=== PATIENT | male | born 1970 | race Caucasian/White ===

== ENCOUNTER 2018-05-13 19:55 | Inpatient (IN) ==
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
[2018-05-13] MEDS ORDERED: Diphtheria/Tetanus/Pertussis Vaccine Inj 0.5 ML Syringe IM ONE (20:20)
[2018-05-13] MEDS ORDERED: ceFAZolin 2 GM Premix Inj 2 GM/50 ML PIGGYBACK IV.SIG ONE (20:20)
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
[2018-05-13 20:21] LABS: Baso # (Auto) 0.1 th/mm3 (0.0-0.2); Baso % (Auto) 1.1 % (0.0-2.0); Eos # (Auto) 0.1 th/mm3 (0.0-0.4); Eos % (Auto) 1.2 % (0.0-4.0); Hematocrit 44.7 % (39.0-51.0); Hemoglobin 15.2 gm/dL (13.0-17.0); Lymph # (Auto) 2.3 th/mm3 (1.0-4.8); Lymph % (Auto) 28.6 % (9.0-44.0); Mean Corpuscular HGB Conc 33.9 % (32.0-36.0); Mean Corpuscular Hemoglobin 32.6 pg (27.0-34.0); Mean Corpuscular Volume 96.1 fL (80.0-100.0); Mean Platelet Volume 8.3 fL (7.0-11.0); Mono # (Auto) 0.6 th/mm3 (0.0-0.9); Neut # (Auto) 4.8 th/mm3 (1.8-7.7); Neut % (Auto) 61.1 % (16.0-70.0); Platelet Count 179 th/mm3 (150-450); Red Blood Count 4.65 mil/mm3 (4.50-5.90); Red Cell Distribution Width 13.3 % (11.6-17.2); White Blood Count 7.9 th/mm3 (4.0-11.0)
[2018-05-13 20:30] LABS: Activated Partial Thrombo Time 22.9 sec (24.3-30.1); Prothrombin Time 10.5 sec (9.8-11.6)
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
[2018-05-13] MEDS ORDERED: Lidocaine 1%/Epinephrine 1:100,000 Inj 20 ML Vial ONE (20:43)
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
[2018-05-13] MEDS ORDERED: fentaNYL Citrate Inj 100 MCG/2 ML Ampul ONE (21:00)
--- NOTE | 2018-05-13 21:11 | XR ---
EXAM DATE: 05/13/2018 8:58 PM EDT AGE/SEX: 89 years / Male INDICATIONS: Evaluate for pneumothorax post chest tube placement. CLINICAL DATA: This is the patient's initial encounter. Patient reports that signs and symptoms have been present for 1 day and indicates a pain score of 0/10. MEDICAL/SURGICAL HISTORY: Non-responsive. Non-responsive. COMPARISON: [facility] – [place], CHEST 1V SINGLE AP, 05/13/2018. . FINDINGS: Right chest tube is in place. No definite pneumothorax is seen for technique. Right clavicular and rib fractures are again seen. Pa renchymal contusion is seen right upper lobe worse since the prior exam. There are no other changes. CONCLUSION: 1. No definite pneumothorax is seen for technique. 2. Worsening parenchymal contusion right upper lobe. Electronically signed by: Donte Parada MD 05/13/2018 9:10 PM EDT
[2018-05-13] MEDS ORDERED: Naloxone Inj 0.4 MG/ML Vial IV.PUSH PRN (21:19)
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
--- NOTE | 2018-05-13 22:21 | XR ---
EXAM DATE: 05/13/2018 12:00 AM EDT AGE/SEX: 89 years / Male INDICATIONS: Pain status post DETENTION. CLINICAL DATA: This is the patient's initial encounter. Patient reports that signs and symptoms have been present for 1 day and indicates a pain score of 8/10. MEDICAL/SURGICAL HISTORY: None. None. COMPARISON: C, SHOULDER LIMITED RIGHT 2V, 05/13/2018. . FINDINGS: There is a mid right clavicle fracture. The distal lateral fragment is inferiorly positioned in relat ionship to the proximal medial fragment. There is a right chest tube present. CONCLUSION: Mid right clavicle fracture. Electronically signed by: Patric Orellana MD 05/13/2018 10:20 PM EDT
[2018-05-13] MEDS: HYDROmorphone PCA Inj 6 MG/30 ML PCA.VIAL PCA PRN (23:21)
--- NOTE | 2018-05-14 01:31 | XR ---
EXAM DATE: 05/14/2018 8:58 PM EDT AGE/SEX: 47 years / Male INDICATIONS: Right side chest tube placement, atelectasis. CLINICAL DATA: This is the patient's subsequent encounter. Patient reports that signs and symptoms h ave been present for 2 days and indicates a pain score of 7/10. MEDICAL/SURGICAL HISTORY: . Smoker. Chest tube, right. COMPARISON: [facility] [place], CHEST EXPIRATION ONLY, 05/13/2018. . FINDINGS: Right chest tube present without pneumothorax. Slight increase in right sided airspace disease since May 13. Small right pleural effusion. Stable left basilar opacity. Right clavicle and right rib f ractures. CONCLUSION: Right chest tube without pneumothorax. Slight increase in right-sided airspace disease since May 13. Electronically signed by: Win Naik MD 05/14/2018 1:30 AM EDT
[2018-05-14] MEDS ORDERED: Chlorhexidine Gluconate 2% 1 Pack (2 Cloths) TOPICAL PRN (04:00)
[2018-05-14] MEDS: Chlorhexidine Gluconate 2% 1 Pack (2 Cloths) TOPICAL SCH (04:04)
[2018-05-14 04:05] LABS: Baso # (Auto) 0.1 th/mm3 (0.0-0.2); Baso % (Auto) 0.8 % (0.0-2.0); Eos % (Auto) 0.1 % (0.0-4.0); Hematocrit 43.3 % (39.0-51.0); Hemoglobin 15.1 gm/dL (13.0-17.0); Lymph # (Auto) 0.8 th/mm3 (1.0-4.8); Lymph % (Auto) 7.2 % (9.0-44.0); Mean Corpuscular HGB Conc 34.8 % (32.0-36.0); Mean Corpuscular Hemoglobin 33.5 pg (27.0-34.0); Mean Corpuscular Volume 96.2 fL (80.0-100.0); Mean Platelet Volume 8.4 fL (7.0-11.0); Mono # (Auto) 0.8 th/mm3 (0.0-0.9); Mono % (Auto) 6.8 % (0.0-8.0); Neut # (Auto) 9.8 th/mm3 (1.8-7.7); Neut % (Auto) 85.1 % (16.0-70.0); Platelet Count 172 th/mm3 (150-450); Red Cell Distribution Width 13.5 % (11.6-17.2); White Blood Count 11.5 th/mm3 (4.0-11.0)
[2018-05-14 04:33] LABS: Calcium 8.1 mg/dL (8.5-10.1); Carbon Dioxide 26.3 meq/L (21.0-32.0); Magnesium 1.9 mg/dL (1.5-2.5); Phosphorus 4.3 mg/dL (2.5-4.9); Potassium 4.5 meq/L (3.5-5.1)
[2018-05-14 04:35] LABS: Lymphocytes 6 % (9-44); Monocytes 5 % (0-8); Ovalocytes 1+; Platelet Estimate Normal (Normal); Platelet Morphology Normal (Normal)
[2018-05-14 04:37] LABS: Troponin I 0.02 ng/mL (0.02-0.05)
[2018-05-14] MEDS ORDERED: Potassium Chlor 20 mEq Premix 20 MEQ/100 ML PIGGYBACK IV.SIG PRN ×2 (04:43)
[2018-05-14] MEDS ORDERED: Magnesium Oxide 400 MG Tablet PO PRN (04:43)
[2018-05-14] MEDS ORDERED: Potassium Phosphate 500 MG Soluble Tablet PO PRN ×2 (04:43)
[2018-05-14] MEDS ORDERED: Potassium Chloride 25 MEQ Effervescent Tablet PO PRN (04:43)
[2018-05-14] MEDS ORDERED: Potassium Phosphate Inj 30 MMOL in Sodium Chlor 0.9% Inj 250 ML IV.SIG PRN (04:43)
[2018-05-14] MEDS ORDERED: Sodium Phosphate Inj 30 MMOL in Sodium Chlor 0.9% Inj 250 ML IV.SIG PRN (04:43)
[2018-05-14] MEDS ORDERED: Potassium Chlor 40 mEq Premix 40 MEQ/100 ML PIGGYBACK IV.SIG PRN ×2 (04:43)
[2018-05-14] MEDS ORDERED: Magnesium Sulfate Inj 4 GM in Sodium Chlor 0.9% Inj 92 ML IV.SIG PRN (04:43)
[2018-05-14] MEDS ORDERED: Magnesium Sulfate Inj 2 GM in Sodium Chlor 0.9% Inj 96 ML IV.SIG PRN (04:43)
--- NOTE | 2018-05-14 07:55 | XR ---
EXAM DATE: 05/14/2018 7:17 AM EDT AGE/SEX: 47 years / Male INDICATIONS: Evaluate right pneumothorax. CLINICAL DATA: This is the patient's subsequent encounter. Patient reports that signs and symptoms h ave been present for 2 days and indicates a pain score of 7/10. MEDICAL/SURGICAL HISTORY: . Smoker. . Chest tube, right. COMPARISON: . FINDINGS: AP upright portable view of the chest demonstrates stable positioning of a right-sided basilar chest tube. Hazy opacity overlying the right hemithorax, stable from prior exam. Improved aeration of the l eft hemithorax with no visible airspace consolidation or pleural fluid. Heart size appears normal. Pu lmonary vasculature demonstrates cephalization which may be secondary to supine technique. Osseous st ructures are significant for a comminuted minimally displaced right clavicular fracture. Right-sided rib fractures are not well visualized on this exam. CONCLUSION: Layering right-sided pleural effusion. Right-sided chest tube is stable. No visible pneumothorax. Electronically signed by: Mili Reynolds MD 05/14/2018 7:54 AM EDT
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
[2018-05-14] MEDS: Lidocaine 5% Patch T-DERMAL SCH (08:45)
[2018-05-14] MEDS: Famotidine 20 MG Tablet PO SCH ×2 (08:45→20:44)
[2018-05-14] MEDS: Docusate Sodium 100 MG Capsule PO SCH ×2 (08:45→20:44)
[2018-05-14] MEDS: Enoxaparin Inj 30 MG/0.3 ML Syringe SQ SCH ×2 (10:16→22:08)
[2018-05-14] MEDS: Ketorolac Inj 30 MG/ML (IVP) Vial IV.PUSH SCH ×3 (10:35→21:15)
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
--- NOTE | 2018-05-14 12:57 | ECG ---
Date Performed: 05/14/2018 Time Performed: 01:47:12 PTAGE: 47 years EKG: Sinus rhythm with frequent PVCs. Inferior T wave changes are nonspecific Abnormal ECG NO PREVIOUS TRACING DOCTOR: Luciano Donohue Interpretating Date/Time 05/14/2018 12:55:29
--- NOTE | 2018-05-14 13:07 | ECHRPT ---
Indication: CARDIAC CONTUSION CONCLUSIONS The left ventricular systolic function is normal with an estimated ejection fraction in the range of 60-65%. Trace mitral valve regurgitation. Trivial pulmonary valve regurgitation. No pericardial effusion. BP: / HR: Rhythm: Sinus MEASUREMENTS (Male / Female) Normal Values Technical Quality:Poor 2D ECHO LV Diastolic Diameter PLAX 5.0 cm 4.2 - 5.9 / 3.9 - 5.3 cm LV Systolic Diameter PLAX 3.5 cm IVS Diastolic Thickness 1.0 cm 0.6 - 1.0 / 0.6 - 0.9 cm LVPW Diastolic Thickness 1.0 cm 0.6 - 1.0 / 0.6 - 0.9 cm LV Relative Wall Thickness 0.4 RV Internal Dim ED PLAX 2.4 cm LVOT Diameter 2.4 cm LA Systolic Diameter LX 2.8 cm 3.0 - 4.0 / 2.7 - 3.8 cm LV Ejection Fraction MOD 4C 64.0 % LV Ejection Fraction 4C AL 64.5 % M-MODE Aortic Root Diameter MM 2.3 cm LA Systolic Diameter MM 3.3 cm LA Ao Ratio MM 1.4 AV Cusp Separation MM 2.1 cm DOPPLER AV Peak Velocity 130.0 cm/s AV Peak Gradient 6.8 mmHg LVOT Peak Velocity 87.4 cm/s LVOT Peak Gradient 3.1 mmHg AV Area Cont Eq pk 3.0 cm MV Area PHT 4.2 cm Mitral E Point Velocity 71.6 cm/s Mitral A Point Velocity 43.4 cm/s Mitral E to A Ratio 1.6 PV Peak Velocity 126.0 cm/s PV Peak Gradient 6.4 mmHg FINDINGS LEFT VENTRICLE The left ventricular systolic function is normal with an estimated ejection fraction in the range of 60-65%. Normal left ventricular size. Wall thickness is normal. RIGHT VENTRICLE The right ventricle was not well visualized. LEFT ATRIUM The left atrial size is normal. RIGHT ATRIUM The right atrial size is normal. ATRIAL SEPTUM Normal atrial septal thickness without atrial level shunting by limited color doppler interrogation. AORTA The aortic root and proximal ascending aorta are normal in size on limited imaging. MITRAL VALVE Structurally normal mitral valve. Trace mitral valve regurgitation. No mitral valve stenosis. AORTIC VALVE Trileaflet aortic valve. No aortic valve stenosis or regurgitation. TRICUSPID VALVE Grossly normal tricuspid valve. No tricuspid valve stenosis or regurgitation. PULMONARY VALVE Trivial pulmonary valve regurgitation. VESSELS The inferior vena cava was not well visualized. PERICARDIUM No pericardial effusion. Vincent G. Bang DO (Electronically Signed) Final Date:14 May 2018 13:07
[2018-05-14] MEDS: HYDROmorphone PCA Inj 6 MG/30 ML PCA.VIAL PCA PRN (15:02)
[2018-05-15 04:21] LABS: Baso % (Auto) 0.7 % (0.0-2.0); Eos # (Auto) 0.1 th/mm3 (0.0-0.4); Eos % (Auto) 1.1 % (0.0-4.0); Hematocrit 39.6 % (39.0-51.0); Hemoglobin 13.6 gm/dL (13.0-17.0); Lymph # (Auto) 1.4 th/mm3 (1.0-4.8); Lymph % (Auto) 22.5 % (9.0-44.0); Mean Corpuscular HGB Conc 34.4 % (32.0-36.0); Mean Corpuscular Hemoglobin 33.5 pg (27.0-34.0); Mean Corpuscular Volume 97.5 fL (80.0-100.0); Mean Platelet Volume 8.6 fL (7.0-11.0); Mono # (Auto) 0.6 th/mm3 (0.0-0.9); Mono % (Auto) 9.4 % (0.0-8.0); Neut # (Auto) 4.2 th/mm3 (1.8-7.7); Neut % (Auto) 66.3 % (16.0-70.0); Platelet Count 126 th/mm3 (150-450); Red Blood Count 4.07 mil/mm3 (4.50-5.90); Red Cell Distribution Width 13.5 % (11.6-17.2); White Blood Count 6.4 th/mm3 (4.0-11.0)
[2018-05-15] MEDS: Ketorolac Inj 30 MG/ML (IVP) Vial IV.PUSH SCH ×4 (04:45→21:10)
[2018-05-15] MEDS: Chlorhexidine Gluconate 2% 1 Pack (2 Cloths) TOPICAL SCH (04:46)
[2018-05-15] MEDS: HYDROmorphone PCA Inj 6 MG/30 ML PCA.VIAL PCA PRN ×2 (04:46→18:12)
[2018-05-15 04:47] LABS: Alanine Aminotransferase 53 U/L (12-78); Albumin 2.8 g/dL (3.4-5.0); Anion Gap 4 meq/L (5-15); Aspartate Aminotransferase 55 U/L (15-37); Blood Urea Nitrogen 22 mg/dL (7-18); Calcium 7.8 mg/dL (8.5-10.1); Carbon Dioxide 28.8 meq/L (21.0-32.0); Chloride 105 meq/L (98-107); Glomerular Filtration Rate 85 mL/min (>89); Glucose,Random 102 mg/dL (74-106); Potassium 4.2 meq/L (3.5-5.1); Sodium 138 meq/L (136-145)
[2018-05-15 04:49] LABS: Alkaline Phosphatase 61 U/L (45-117)
--- NOTE | 2018-05-15 05:40 | XR ---
EXAM DATE: 05/15/2018 6:00 AM EDT AGE/SEX: 47 years / Male INDICATIONS: Shortness of breath. CLINICAL DATA: This is the patient's subsequent encounter. Patient reports that signs and symptoms h ave been present for 2 days and indicates a pain score of 0/10. MEDICAL/SURGICAL HISTORY: . Smoker. Chest tube, right. [place] [facility] [place]. . FINDINGS: Right chest tube remains without pneumothorax. Right effusion appears stable. Multiple right rib frac tures noted and right clavicle fracture. Basilar and dependent airspace disease remains in the lungs, slightly improved from May 14. CONCLUSION: Slight improvement in bilateral airspace disease. Right chest tube without pneumothorax. Electronically signed by: Win Naik MD 05/15/2018 5:39 AM EDT
[2018-05-15] MEDS ORDERED: Sodium Chloride 0.9% 2 ML Flush PRN IV.FLUSH (09:29)
[2018-05-15] MEDS ORDERED: Sod Chloride 0.9% Inj 1,000 ML IV.SIG SCH (09:30)
[2018-05-15] MEDS: Docusate Sodium 100 MG Capsule PO SCH ×2 (11:03→21:11)
[2018-05-15] MEDS: Lidocaine 5% Patch T-DERMAL SCH (11:04)
[2018-05-15] MEDS: Famotidine 20 MG Tablet PO SCH ×2 (11:04→21:10)
[2018-05-15] MEDS: Enoxaparin Inj 30 MG/0.3 ML Syringe SQ SCH ×2 (11:12→22:17)
[2018-05-15] MEDS: Gabapentin 300 MG Capsule PO SCH ×2 (12:30→17:11)
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
[2018-05-15] MEDS: Sodium Chloride 0.9% 2 ML Flush BID IV.FLUSH SCH (21:11)
[2018-05-16] MEDS: Chlorhexidine Gluconate 2% 1 Pack (2 Cloths) TOPICAL SCH (03:18)
[2018-05-16 04:04] LABS: Baso % (Auto) 0.4 % (0.0-2.0); Eos % (Auto) 0.8 % (0.0-4.0); Hematocrit 38.8 % (39.0-51.0); Hemoglobin 13.1 gm/dL (13.0-17.0); Lymph # (Auto) 0.7 th/mm3 (1.0-4.8); Lymph % (Auto) 11.3 % (9.0-44.0); Mean Corpuscular HGB Conc 33.8 % (32.0-36.0); Mean Corpuscular Volume 97.9 fL (80.0-100.0); Mean Platelet Volume 8.9 fL (7.0-11.0); Mono # (Auto) 0.5 th/mm3 (0.0-0.9); Mono % (Auto) 7.9 % (0.0-8.0); Neut # (Auto) 5.1 th/mm3 (1.8-7.7); Neut % (Auto) 79.6 % (16.0-70.0); Platelet Count 128 th/mm3 (150-450); Red Blood Count 3.97 mil/mm3 (4.50-5.90); Red Cell Distribution Width 13.4 % (11.6-17.2); White Blood Count 6.5 th/mm3 (4.0-11.0)
[2018-05-16 04:26] LABS: Anion Gap 5 meq/L (5-15); Aspartate Aminotransferase 57 U/L (15-37); Blood Urea Nitrogen 22 mg/dL (7-18); Calcium 8.5 mg/dL (8.5-10.1); Carbon Dioxide 30.3 meq/L (21.0-32.0); Chloride 103 meq/L (98-107); Glomerular Filtration Rate 87 mL/min (>89); Glucose,Random 95 mg/dL (74-106); Potassium 4.2 meq/L (3.5-5.1); Sodium 138 meq/L (136-145)
[2018-05-16 04:27] LABS: Alanine Aminotransferase 48 U/L (12-78)
[2018-05-16 04:29] LABS: Alkaline Phosphatase 62 U/L (45-117); Total Protein 6.7 g/dL (6.4-8.2)
--- NOTE | 2018-05-16 04:31 | XR ---
EXAM DATE: 05/16/2018 6:00 AM EDT AGE/SEX: 47 years / Male INDICATIONS: Shortness of breath, cough, congestion. CLINICAL DATA: This is the patient's subsequent encounter. Patient reports that signs and symptoms h ave been present for 3 days and indicates a pain score of 0/10. MEDICAL/SURGICAL HISTORY: . Smoker. Chest tube, right. COMPARISON: [facility] [place], CHEST 1V SINGLE AP, 05/15/2018. . FINDINGS: The cardiac silhouette is enlarged in transverse diameter. A right chest tube is in place. There is n o evidence of pneumothorax. There is patchy alveolar disease bilaterally characteristic of edema or p neumonia right greater than left. CONCLUSION: Diffuse edema versus pneumonia. The findings have worsened when compared with the prior examination. Electronically signed by: King Brown MD 05/16/2018 4:29 AM EDT
[2018-05-16] MEDS: Ketorolac Inj 30 MG/ML (IVP) Vial IV.PUSH SCH ×4 (05:07→22:11)
[2018-05-16] MEDS: Famotidine 20 MG Tablet PO SCH ×2 (09:02→20:52)
[2018-05-16] MEDS: Gabapentin 300 MG Capsule PO SCH ×3 (09:02→17:37)
[2018-05-16] MEDS: Senna/Docusate Sodium 8.6/50 MG Tablet PO SCH ×2 (09:02→20:52)
[2018-05-16] MEDS: Lidocaine 5% Patch T-DERMAL SCH (09:02)
[2018-05-16] MEDS: Sodium Chloride 0.9% 2 ML Flush BID IV.FLUSH SCH ×2 (09:03→20:52)
[2018-05-16] MEDS: HYDROmorphone PCA Inj 6 MG/30 ML PCA.VIAL PCA PRN (10:28)
[2018-05-16] MEDS: Enoxaparin Inj 30 MG/0.3 ML Syringe SQ SCH ×2 (11:00→22:11)
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
[2018-05-17] MEDS: HYDROmorphone PCA Inj 6 MG/30 ML PCA.VIAL PCA PRN (03:11)
[2018-05-17] MEDS: Ketorolac Inj 30 MG/ML (IVP) Vial IV.PUSH SCH ×4 (04:34→21:30)
[2018-05-17] MEDS: Chlorhexidine Gluconate 2% 1 Pack (2 Cloths) TOPICAL SCH (04:35)
--- NOTE | 2018-05-17 06:04 | XR ---
EXAM DATE: 05/17/2018 12:00 AM EDT AGE/SEX: 47 years / Male INDICATIONS: Shortness of breath. Cough, congestion, chest pain. CLINICAL DATA: This is the patient's subsequent encounter. Patient reports that signs and symptoms h ave been present for 4 - 6 days and indicates a pain score of 8/10. MEDICAL/SURGICAL HISTORY: . Smoker. Chest tube, right. COMPARISON: [facility] – [place], CHEST 1V SINGLE AP, 05/16/2018. . FINDINGS: The cardiac silhouette is normal in transverse diameter. A right chest tube is in place. There is no evidence of pneumothorax. There is patchy alveolar disease bilaterally compatible with edema or pneum onia. No pleural effusions are identified. CONCLUSION: Diffuse edema versus pneumonia. There has been no significant change when compared to the prior exam. Electronically signed by: King Brown MD 05/17/2018 6:03 AM EDT
[2018-05-17] MEDS: Senna/Docusate Sodium 8.6/50 MG Tablet PO SCH ×2 (09:31→21:30)
[2018-05-17] MEDS: Gabapentin 300 MG Capsule PO SCH ×3 (09:32→17:25)
[2018-05-17] MEDS: Sodium Chloride 0.9% 2 ML Flush BID IV.FLUSH SCH ×2 (09:33→21:33)
[2018-05-17] MEDS: Lidocaine 5% Patch T-DERMAL SCH (09:33)
[2018-05-17] MEDS: Famotidine 20 MG Tablet PO SCH ×2 (09:34→21:30)
[2018-05-17] MEDS: Enoxaparin Inj 30 MG/0.3 ML Syringe SQ SCH ×2 (11:09→22:30)
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
[2018-05-17] MEDS: Morphine Inj 4 MG/ML Vial IV.PUSH PRN ×2 (15:43→22:51)
[2018-05-18] MEDS: Morphine Inj 4 MG/ML Vial IV.PUSH PRN (01:59)
[2018-05-18] MEDS: Ketorolac Inj 30 MG/ML (IVP) Vial IV.PUSH SCH ×4 (04:18→22:13)
[2018-05-18] MEDS: Chlorhexidine Gluconate 2% 1 Pack (2 Cloths) TOPICAL SCH (04:20)
[2018-05-18 05:46] LABS: Baso % (Auto) 0.8 % (0.0-2.0); Eos # (Auto) 0.1 th/mm3 (0.0-0.4); Eos % (Auto) 2.1 % (0.0-4.0); Hematocrit 38.6 % (39.0-51.0); Hemoglobin 13.4 gm/dL (13.0-17.0); Lymph # (Auto) 0.9 th/mm3 (1.0-4.8); Lymph % (Auto) 19.1 % (9.0-44.0); Mean Corpuscular HGB Conc 34.8 % (32.0-36.0); Mean Corpuscular Hemoglobin 33.3 pg (27.0-34.0); Mean Corpuscular Volume 95.8 fL (80.0-100.0); Mean Platelet Volume 8.1 fL (7.0-11.0); Mono # (Auto) 0.5 th/mm3 (0.0-0.9); Neut # (Auto) 3.2 th/mm3 (1.8-7.7); Platelet Count 176 th/mm3 (150-450); Red Blood Count 4.03 mil/mm3 (4.50-5.90); Red Cell Distribution Width 13.7 % (11.6-17.2); White Blood Count 4.7 th/mm3 (4.0-11.0)
--- NOTE | 2018-05-18 06:05 | XR ---
EXAM DATE: 05/18/2018 12:00 AM EDT AGE/SEX: 47 years / Male INDICATIONS: Shortness of breath. CLINICAL DATA: This is the patient's subsequent encounter. Patient reports that signs and symptoms h ave been present for 4 - 6 days and indicates a pain score of Nonresponsive. MEDICAL/SURGICAL HISTORY: None. None. COMPARISON: [facility], CHEST 1V SINGLE AP, 05/17/2018. . FINDINGS: The cardiac silhouette is enlarged in transverse diameter. There is diffuse edema versus pneumonia ri ght greater than left. There is no evidence of pneumothorax. Chest tube has been removed CONCLUSION: Diffuse edema versus pneumonia. There has been no significant change when compared to the prior exam. Electronically signed by: King Brown MD 05/18/2018 6:04 AM EDT
[2018-05-18 06:15] LABS: Anion Gap 7 meq/L (5-15); Blood Urea Nitrogen 16 mg/dL (7-18); Calcium 8.3 mg/dL (8.5-10.1); Carbon Dioxide 29.9 meq/L (21.0-32.0); Chloride 101 meq/L (98-107); Glomerular Filtration Rate Greater Than 89 mL/min (>89); Glucose,Random 107 mg/dL (74-106); Potassium 3.6 meq/L (3.5-5.1); Sodium 138 meq/L (136-145)
[2018-05-18] MEDS: Famotidine 20 MG Tablet PO SCH ×2 (09:15→20:11)
[2018-05-18] MEDS: Lidocaine 5% Patch T-DERMAL SCH (09:15)
[2018-05-18] MEDS: Sodium Chloride 0.9% 2 ML Flush BID IV.FLUSH SCH ×2 (09:15→23:34)
[2018-05-18] MEDS: Senna/Docusate Sodium 8.6/50 MG Tablet PO SCH ×2 (09:15→20:11)
[2018-05-18] MEDS: Gabapentin 300 MG Capsule PO SCH ×3 (09:15→18:19)
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
[2018-05-18] MEDS: Enoxaparin Inj 30 MG/0.3 ML Syringe SQ SCH ×2 (12:25→22:14)
[2018-05-18] MEDS: Melatonin 5 MG Tablet PO PRN (20:11)
[2018-05-19] MEDS: Ketorolac Inj 30 MG/ML (IVP) Vial IV.PUSH SCH (03:49)
--- NOTE | 2018-05-19 05:33 | XR ---
EXAM DATE: 05/19/2018 6:00 AM EDT AGE/SEX: 47 years / Male INDICATIONS: Shortness of breath. CLINICAL DATA: This is the patient's subsequent encounter. Patient reports that signs and symptoms h ave been present for 1 week and indicates a pain score of Nonresponsive. MEDICAL/SURGICAL HISTORY: None. Non-responsive. COMPARISON: [facility] [place] SINGLE AP[place]18/2018. . FINDINGS: The cardiac silhouette is normal in transverse diameter. There is edema versus pneumonia bilaterally right greater than left. A moderate size right sided effusion is present. CONCLUSION: Diffuse edema versus pneumonia. There has been no significant change when compared to the prior exam. Electronically signed by: King Brown MD 05/19/2018 5:32 AM EDT
[2018-05-19 05:54] LABS: Baso % (Auto) 0.9 % (0.0-2.0); Eos # (Auto) 0.1 th/mm3 (0.0-0.4); Eos % (Auto) 2.7 % (0.0-4.0); Hematocrit 37.8 % (39.0-51.0); Lymph # (Auto) 0.8 th/mm3 (1.0-4.8); Lymph % (Auto) 14.5 % (9.0-44.0); Mean Corpuscular HGB Conc 34.4 % (32.0-36.0); Mean Corpuscular Hemoglobin 33.3 pg (27.0-34.0); Mean Corpuscular Volume 96.7 fL (80.0-100.0); Mean Platelet Volume 8.1 fL (7.0-11.0); Mono # (Auto) 0.4 th/mm3 (0.0-0.9); Mono % (Auto) 7.6 % (0.0-8.0); Neut # (Auto) 3.9 th/mm3 (1.8-7.7); Neut % (Auto) 74.3 % (16.0-70.0); Platelet Count 185 th/mm3 (150-450); Red Cell Distribution Width 13.4 % (11.6-17.2); White Blood Count 5.2 th/mm3 (4.0-11.0)
[2018-05-19 06:24] LABS: Alanine Aminotransferase 47 U/L (12-78); Albumin 2.6 g/dL (3.4-5.0); Anion Gap 5 meq/L (5-15); Aspartate Aminotransferase 57 U/L (15-37); Blood Urea Nitrogen 19 mg/dL (7-18); Calcium 8.4 mg/dL (8.5-10.1); Carbon Dioxide 32.5 meq/L (21.0-32.0); Chloride 102 meq/L (98-107); Glomerular Filtration Rate 88 mL/min (>89); Glucose,Random 125 mg/dL (74-106); Potassium 3.6 meq/L (3.5-5.1); Sodium 139 meq/L (136-145)
[2018-05-19 06:26] LABS: Alkaline Phosphatase 66 U/L (45-117); Total Protein 6.5 g/dL (6.4-8.2)
[2018-05-19] MEDS ORDERED: Bisacodyl 10 MG Supp RECTAL ONE (08:14)
[2018-05-19] MEDS: Famotidine 20 MG Tablet PO SCH ×2 (08:19→22:12)
[2018-05-19] MEDS: Lidocaine 5% Patch T-DERMAL SCH (08:19)
[2018-05-19] MEDS: Gabapentin 300 MG Capsule PO SCH ×3 (08:19→17:38)
[2018-05-19] MEDS: Senna/Docusate Sodium 8.6/50 MG Tablet PO SCH ×2 (08:19→22:13)
[2018-05-19] MEDS: Enoxaparin Inj 30 MG/0.3 ML Syringe SQ SCH ×2 (10:13→22:17)
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
[2018-05-19] MEDS: Morphine Inj 4 MG/ML Vial IV.PUSH PRN (11:34)
[2018-05-19] MEDS: Sodium Chloride 0.9% 2 ML Flush BID IV.FLUSH SCH ×2 (12:29→22:13)
--- NOTE | 2018-05-20 05:05 | XR ---
EXAM DATE: 05/20/2018 6:00 AM EDT AGE/SEX: 47 years / Male INDICATIONS: Respiratory disease. CLINICAL DATA: This is the patient's subsequent encounter. Patient reports that signs and symptoms h ave been present for 1 week and indicates a pain score of 9/10. MEDICAL/SURGICAL HISTORY: None. None. [place] [facility] [place]. . FINDINGS: The heart size is normal. There is increased density at the bases bilaterally being worse on the righ t. There is silhouetting the right hemidiaphragm. There is fracturing of the right mid clavicle. Ther e appears to be a mild right pleural effusion. Right-sided rib fractures are seen. CONCLUSION: Bibasilar areas of consolidation or atelectasis being much worse on the right. Mild right pleural effusion. Right clavicle and rib fractures. Electronically signed by: Patric Orellana MD 05/20/2018 5:04 AM EDT
[2018-05-20] MEDS ORDERED: Magnesium Citrate Liq 300 ML Bottle PO ONE (08:00)
[2018-05-20] MEDS: Gabapentin 300 MG Capsule PO SCH ×3 (08:49→17:29)
[2018-05-20] MEDS: Famotidine 20 MG Tablet PO SCH ×2 (08:49→20:39)
[2018-05-20] MEDS: Lidocaine 5% Patch T-DERMAL SCH (08:49)
[2018-05-20] MEDS: Sodium Chloride 0.9% 2 ML Flush BID IV.FLUSH SCH ×2 (08:50→20:43)
[2018-05-20] MEDS: Senna/Docusate Sodium 8.6/50 MG Tablet PO SCH ×2 (08:51→21:30)
[2018-05-20] MEDS: Enoxaparin Inj 30 MG/0.3 ML Syringe SQ SCH ×2 (11:08→22:09)
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
[2018-05-20] MEDS: guaiFENesin 600 MG ER Tablet PO SCH ×2 (13:40→20:39)
[2018-05-20] MEDS: Melatonin 5 MG Tablet PO PRN (20:39)
--- NOTE | 2018-05-21 05:51 | XR ---
EXAM DATE: 05/21/2018 6:00 AM EDT AGE/SEX: 47 years / Male INDICATIONS: Shortness of breath, possible pneumothorax. CLINICAL DATA: This is the patient's subsequent encounter. Patient reports that signs and symptoms h ave been present for 1 week and indicates a pain score of 9/10. MEDICAL/SURGICAL HISTORY: None. None. COMPARISON: [facility] – [place], CHEST 1V SINGLE AP, 05/20/2018. . FINDINGS: A single AP view of the chest demonstrates patchy densities right lower lobe and to lesser degree lef t upper lobe and left lower lobe. Heart normal in size. Multiple right-sided rib fractures. No pneumo thorax CONCLUSION: Stable bibasilar and left upper lobe patchy densities Electronically signed by: Evan Bernabe MD 05/21/2018 5:49 AM EDT
[2018-05-21] MEDS: Gabapentin 300 MG Capsule PO SCH (09:10)
[2018-05-21] MEDS: guaiFENesin 600 MG ER Tablet PO SCH (09:10)
[2018-05-21] MEDS: Famotidine 20 MG Tablet PO SCH (09:10)
[2018-05-21] MEDS: Lidocaine 5% Patch T-DERMAL SCH (09:11)
[2018-05-21 09:34] VITALS: BP 136/64; PULSE 78; RESP 16; TEMP 97.8; O2SAT 92
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
== END 2018-05-21 09:58 | disposition home or self-care (01) ==
LOC: NEPI 19:55 → NEDA 21:26 → EDBD 21:26 → NEDA 22:58 → N03 23:10 → N06 05-19 12:54
PROVIDERS: ADMIT Surgery Trauma Surgery; ATTEND Surgery Trauma Surgery